=== PATIENT | male | born 1980 | race Two or more races ===

== ENCOUNTER 2023-01-21 17:27 | Emergency (ER) | payer OTHER ==
[~2023-01-21] VITALS: Ht 170.2 cm; Wt 68.0 kg
[2023-01-21 19:33] LABS: HEMATOCRIT 40.5 % (39.0-48.0); MEAN CELL VOLUME 83.1 fL (80.0-100.00); MEAN CORPUSCULAR HEMOGLOBIN 28.8 pg (27.00-32.0); MEAN CORPUSCULAR HGB CONC 34.6 g/dl (32.0-36.0); PLATELET COUNT 225 K/uL (150-450); RED BLOOD COUNT 4.87 M/uL (4.00-6.00); RED CELL DISTRIBUTION WIDTH 13.4 % (11.5-14.5)
[2023-01-21 19:54] LABS: CALCIUM 9.3 mg/dL (8.5-10.1); CREATININE SERUM 1.01 mg/dL (0.70-1.30); GFR 81.4; POTASSIUM 3.85 mEq/L (3.5-5.1)
[2023-01-21 20:37] LABS: PH,URINE 5.5 (5.0-8.0); URINE APPEARANCE Clear; URINE BILIRRUBIN Negative (NEGATIVE); URINE BLOOD Negative; URINE COLOR Dark Yellow; URINE GLUCOSE Negative (NEGATIVE); URINE LEUKOCYTE Negative; URINE NITRATE Negative
[2023-01-21 20:41] LABS: URINE BACTERIA 36.5 uL (0.0-1933); URINE EPITHELIAL CELLS 27.9 uL (0.0-38.8); URINE RBC 51.5 uL (0.0-20.8); URINE WBC 10.5 uL (0.0-23.2)
[2023-01-21 20:52] LABS: URINE PROTEIN 100 (NEGATIVE)
== END 2023-01-21 22:07 | disposition home or self-care (01) ==
LOC: ER 17:27
PROVIDERS: Emergency Medicine
DX: K29.70 Gastritis, unspecified, without bleeding (principal); Z20.822 Contact with and (suspected) exposure to COVID-19